=== PATIENT | male | born 1955 | race Caucasian/White ===

== ENCOUNTER → 2018-07-15 06:27 | Outpatient (CLI) | payer OTHER, SELFPAY ==
--- NOTE | 2018-07-15 06:35 | NM_ITS ---
History and Indications: Hypertension, family history, shortness of breath and palpitations Procedure: Patient exercised on Aydin protocol 6 metastases and 30 seconds, resting heart rate was 64 bpm resting blood pressure 147/82, with exercise maximum heart rate achieved was 1 49 bpm which is greater than 85% of the maximum predicted heart rate and a blood pressure was 220/90. Test was stopped due to leg pain patient denied any complained of chest pain. Patient has adequate exercise capacity achieved 7mets of workload on treadmill, the blood pressure response to exercise was hypertensive. Electrocardiogram: Resting echocardiogram showed sinus rhythm inferior and inferolateral ST-T wave changes. Ischemia, with exercise there is less than 1.[address] depression noted from the baseline EKG. The EKG portion of the exercise Myoview is nondiagnostic baseline abnormal EKG. Cardiac stress and resting SPECT images: Cardiac stress and resting SPECT images were obtained using technetium 99 Myoview 30.5 stress and 10.8 mCi at rest. Gated SPECT further analysis of segmental wall motion and calculation of the ejection fraction also done. Cardiac stress and resting SPECT images show decreased tracer activity in the inferior and posterobasal wall, which partially improves on the resting images suggestive of mixed ischemia and scar, computer derived ejection fraction is 55% with inferior and posterobasal wall moderate hypokinesis. Conclusion: 1. The EKG portion of the exercise Myoview is nondiagnostic due to baseline abnormal EKG, patient has adequate exercise capacity achieved 7mets of workload on treadmill, the blood pressure response to exercise was hypertensive, test was stopped due to leg pain. 2. Scintigraphic evidence of mixed ischemia and scar involving the inferior wall and posterobasal wall, either derived ejection fraction is 55% with segmental wall motion abnormality described above, right ventricle is normal size and contractility. 3. Abnormal exercise Myoview study.
--- NOTE | 2018-07-15 08:23 | CI_ITS ---
Cerebrovascular Exam Indications: 785.9 Bruit. IMPRESSIONS There is a moderate to severe amount of calcific plaque at the proximal internal carotids bilaterally. 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 Suggest CT angiography for further evaluation Carotid duplex study. Complete study and Doppler flow study including spectral analysis, color and condon scale imaging. Height: Height: 170.2cm. Height: 67in. Weight: Weight: 68.9kg. Weight: 151.7lb. Body mass index: BMI: 23.8kg/m^2. Body surface area: BSA: 1.81m^2. Location: Vascular laboratory. Patient status: Outpatient. Tables: Arterial flow: + +--------+--------+ Location V sys V ed + +--------+--------+ Right CCA - proximal 93.5cm/s 19.6cm/s + +--------+--------+ Right CCA - distal 63.6cm/s 17.3cm/s + +--------+--------+ Right ECA 311cm/s -------- + +--------+--------+ Right ICA - proximal 88.8cm/s 22.8cm/s + +--------+--------+ Right ICA - mid 67.6cm/s 22cm/s + +--------+--------+ Right ICA - distal 99cm/s 30.6cm/s + +--------+--------+ Right vertebral 80.1cm/s -------- + +--------+--------+ Left CCA - proximal 99cm/s 23.6cm/s + +--------+--------+ Left CCA - distal 87.6cm/s 21.3cm/s + +--------+--------+ Left ECA 146cm/s -------- + +--------+--------+ Left ICA - proximal 126cm/s 22.4cm/s + +--------+--------+ Left ICA - mid 73cm/s 22.4cm/s + +--------+--------+ Left ICA - distal 101cm/s 29.2cm/s + +--------+--------+ Left vertebral 58.4cm/s -------- + +--------+--------+ Velocity ratios: + + + + + + Right, V sys Right, V ed Left, V sys Left, V ed + + + + + + Max ICA/dist CCA 1.56 1.77 1.44 1.37 + + + + + + (Report amended ) Electronically signed by: Lusi Henry [id number]
--- NOTE | 2018-07-15 10:05 | HMH.ITSHM ---
Current Home Medications as stated by this patient Michael Riggins or associate sales representative. TRIAM/HCTZ TEMAZEPAM
== END ==
PROVIDERS: PCP Family Medicine; Referring Provider Family Medicine; Visit Provider Family Medicine
DX: I25.10 Atherosclerotic heart disease of native coronary artery without angina pectoris (principal); R53.82 Chronic fatigue, unspecified; R09.89 Other specified symptoms and signs involving the circulatory and respiratory systems
CPT/HCPCS: 78452; 93017; 93880; A9502